=== PATIENT | female | born 1950 | race Caucasian/White ===

== ENCOUNTER 2017-01-10 08:51 | Outpatient (CLI) | payer OTHER ==
[2015-10-11 11:44] VITALS: BP 113/84
--- NOTE | 2017-01-10 18:33 | Diagnostic Imaging Report ---
LETICIA GARCIA (RN EMERGENCY) - OP [facility] [id number] [facility] [address] [place], [place]. 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 No fracture lytic changes identified. The pelvic ring is intact. There is no ischemic necrosis of either hip. Lumbar fusion changes and laminectomies are present. Arthritic changes are present sacroiliac joints. Impression: Arthritic changes of the hips No acute hip or pelvis pathology Electronically signed on Jan 10, 2017 9:43:14 AM CDT by: Jeovanny COLLIER
== END 2017-01-10 08:52 ==
LOC: RAD 08:51
PROVIDERS: ATTEND Nurse Practitioner Family
DX: M25.552 Pain in left hip (principal); M25.551 Pain in right hip
CPT/HCPCS: 73521